=== PATIENT | male | born 2005 | race Caucasian/White ===

== ENCOUNTER 2024-07-07 14:49 | Outpatient (AMB) | payer BC, SELFPAY ==
--- NOTE | 2024-07-07 15:21 | A.OFFPC_ITS ---
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 CARE HPI Details New Patient? ?? Prior PCP:[facility] in [place]. Last office visit/CPE:? 1 yr ago Acute issue(s):? Est Care ?? PMHx:? Childhood Asthma Now resolved. SurgHx:? [place] Teeth FHx:?Mom: HTN, Breast CA. Dad: HTN. GF: Heart Disease. Uncle: Prostate CA. 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 ?Nonsmoker. etOH: None. No Drugs HPI Comments History of Present Illness0 Details Documentation assistance for Sinan Sharif MD, was provided by Justice Martino,? Chemistry Physics Teacher on 07/07/2024 at 3:46 PM EST. I, Dr. Sharif, have read, observed, and verified documentation. [facility] Social History (Updated 07/07/24 @ 15:23 by Sonali Moreira [facility]) Housing: Apartment Patient Tobacco Use Status: Never used Tobacco e-Cigarette/Vaping Use: Never Used Second Hand Smoke Exposure: No Use of substances other than those prescribed or required for medical reasons: No service: No Current occupational status: employed and student Current occupation: [employer] Current occupational exposures/hazards: No Cognitive needs: No Hearing needs: No Vision needs: No Questionnaire PHQ-9 Over the last 2 weeks, how often have you been bothered by any of the following problems? 1. Little interest or pleasure in doing things: not at all 2. Feeling down, depressed, or hopeless: not at all 3. Trouble falling or staying asleep, or sleeping too much: not at all 4. Feeling tired or having little energy: not at all 5. Poor appetite or overeating: not at all 6. Feeling bad about yourself - or that you are a failure or have let yourself or your family down: not at all 7. Trouble concentrating on things, such as reading the newspaper or watching television: not at all 8. Moving or speaking so slowly that other people could have noticed. Or the opposite - being so fidgety or restless that you have been moving around a lot more than usual: not at all 9. Thoughts that you would be better off or of hurting yourself in some way: not at all Total score: 0 Depression Screening Interpretation: Negative Depression Screening Done: Yes 94475 - PHQ-9 Billing: Yes Source: Developed by Drs. Doroteo Willard, Ness Bunch, Cecil Wiggins and colleagues, with an educational myranda from [employer]. Thrive Questionnaire Date Thrive assessed: 07/07/24 I am a: Patient What is your living situation today?: I have a steady place to live Within the past 12 months, did the food you bought not last and you didn't have the money to get more?: Never true Within the past 12 months, did you worry whether your food would run out before you got money to buy more?: Never true Do you have trouble paying for medicines?: No Do you have trouble getting transportation to medical appointments?: No Do you have trouble paying your heating and electricity bill?: No Do you have trouble taking care of your child, family member or friend?: No Do you have trouble with day-to-day activities such as bathing, preparing meals, shopping, managing finances, etc.?: No Are you currently unemployed and looking for a job?: No Are you interested in more education?: No Please select the resources that you would like help with: None Currently or been in a relationship where the following occur: No concerns reported THRIVE Score: 0 AUDIT C Alcohol Use Questionnaire (AUDIT-C) 1. How often do you have a drink containing alcohol?: Never 3. How often do you have six or more drinks on one occasion?: Never Total Score: 0 LISA-7 AMB Questionnaire LISA-7 Date LISA - 7 assessed: 07/07/24 Feeling nervous, anxious, or on edge: 0 = Not at all Not being able to stop or control worryin = Not at all Worrying too much about different things: 0 = Not at all Trouble relaxin = Not at all Being so restless that it is hard to sit still: 0 = Not at all Becoming easily annoyed or irritable: 0 = Not at all Feeling afraid as if something awful might happen: 0 = Not at all Total LISA-7 score (0-4 normal; 5-9 mild; 10-14 moderate; 15-21 severe): 0 Source: Developed by Drs. Doroteo Willard, Ness Bunch, Cecil Wiggins and colleagues, with an educational myranda from [employer]. LISA-7 Assessment Billing LISA-7 Assessment Tool: LISA-7 Assessment 51822 Review of Systems Const Denies chills, Denies fatigue, Denies fever(s), Denies headache(s) and Denies weakness Eyes Denies change in vision ENT Denies dizziness, Denies headache(s), Denies hearing loss, Denies nasal congestion, Denies sinus pain, Denies sinus pressure and Denies sore throat Card Denies chest pain, Denies lightheadedness, Denies dyspnea and Denies other (palpitations) Resp Denies cough, Denies dyspnea and Denies wheezing GI Denies abdominal pain, Denies melena, Denies hematochezia, Denies change in bowel habits, Denies dyspepsia and Denies nausea Denies hematuria and Denies dysuria Musc Denies abnormal gait, Denies myalgias, Denies arthralgias, Denies numbness and Denies tingling Skin/Breast Denies rash, Denies unusual bruising and Denies wounds Neuro Denies abnormal gait, Denies dizziness, Denies headache(s), Denies memory loss, Denies numbness, Denies Sensory deficit (Neuro), Denies tingling and Denies weakness Psych Denies anxiety, Denies depression and Denies memory loss Endo Denies cold intolerance, Denies fatigue, Denies heat intolerance, Denies polydipsia and Denies polyuria Yasmany/Lymph Denies easy bleeding and Denies easy bruising Aller/Immun Denies wheezing Physical exam (Primary Care) Vital Signs: Last Vital Signs Temp 98.4 F 07/07/24 15:24 Pulse 74 07/07/24 15:24 Resp 12 07/07/24 15:24 BP 123/62 07/07/24 15:24 Pulse Ox 97 07/07/24 15:24 Oxygen Delivery Method Room Air 07/07/24 15:24 BMI result Body Mass Index 22.0 Tobacco/Smoking Status: Tobacco use Status Tobacco use date assessed 07/07/24 07/07/24 15:27 Patient Tobacco Use Status Never used Tobacco 07/07/24 15:27 e-Cigarette/Vaping Use Never Used 07/07/24 15:27 PHQ-9: PHQ-9 Score PHQ-9: Total score 0 07/07/24 15:36 Depression Screening Interpretation: Negative Thrive Assessment: Date of Thrive Assessment Date Thrive assessed 07/07/24 07/07/24 15:27 Currently or been in a relationship where the following occur: No concerns reported Const General: no acute distress, well developed, alert and awake Nutritional Appearance: well nourished Orientation/consciousness: patient oriented x3 HENMT Head: Yes normocephalic and Yes atraumatic Ears: hearing grossly normal bilaterally and TM's normal bilaterally General nose exam: Normal external nose present and Normal nares present Mouth: Normal oral and palatal mucosa present and moist mucous membranes Teeth and gingiva: dentition normal Throat: Yes posterior oropharynx normal Eyes General: appearance normal, both eyes and all related structures Pupils: Equal, round and reactive pupils present and Pupil accommodation reflex normal EOM: EOMs intact bilaterally Neck Neck: Yes normal visual inspection, Yes no lymphadenopathy and Yes trachea midline Thyroid: Thyroid normal Carotids: no bruits Lymphatic: no lymphadenopathy noted Chest Chest palpation & inspection: normal inspection of the chest Resp Effort & Inspection: normal respiratory effort Auscultation: clear to auscultation bilaterally Cardio Rate: regular rate Rhythm: regular rhythm Heart sounds: S1 normal heart sound present, S2 normal heart sound present, no gallops, no murmurs and no rubs Bruits: no abdominal aortic bruits and no carotid bruits GI Palpation (GI): No Abdominal aortic bruit present, Soft to palpation, nontender, No hepatosplenomegaly present and No Rebound tenderness present Auscultation: normal bowel sounds General: Yes no CVA tenderness Back/Spine/Pelvis Back: no CVA tenderness Cervical Spine: cervical ROM normal and No Cervical spine tenderness Thoracic/Lumbar Spine: thoraco-lumbar ROM normal, No pain with thoraco-lumbar ROM, No thoracic spinal tenderness and No lumbar spinal tenderness Skin Lesions: no lesions Rashes: no rashes Trauma: no lacerations or abrasions Wounds: no wounds Nails: normal Neuro General: patient oriented x3 Cranial nerves: Yes Equal, round and reactive pupils present Cognition (Neuro): normal cognition Gait exam (Neuro): Normal gait present Motor exam (neuro): 5/5 motor strength present throughout Sensory Exam: No Sensory deficit (Neuro) Deep tendon reflexes (DTR's): Right patellar reflex intensity grade: 2+ and Left patellar reflex intensity grade: 2+ Extrem General: Yes normal to inspection and No edema Psych Appearance: grossly normal Affect: normal affect Attitude: cooperative Thought process: Normal thought process present Coding Level of Care Code New Pt Level 3 (59637) New Pt Prev Care 18-39yr(85489 Diagnoses Adult general medical exam Z00.00 Additional Codes LISA-7 Assessment Billing - LISA-7 Assessment Tool: LISA-7 Assessment 46197 ([id number]) Assessment & Plan Assessment & Plan (1) Adult general medical exam: Code(s): Z00.00 - Encounter for general adult medical examination without abnormal findings Category: Medical Plan: 19-year-old?male?presents?as?new?patient?for?complete?physical?exam Encouraged?ongoing?healthy?diet?with?active?lifestyle?and?plenty?of?exercise Plan Check?lab Orders: Orders Microalbumin, Random (w Creat) Today I10 - Essential (primary) hypertension TSH reflex Free T4 Today Z00.00 - Encounter for general adult medical examination without abnormal findings UA and rflx microscopic Today Z00.00 - Encounter for general adult medical examination without abnormal findings CT NG by PCR Today Z11.3 - Encounter for screening for infections with a predominantly sexual mode of transmission Comprehensive [place]. Panel Fast Today Z00.00 - Encounter for general adult medical examination without abnormal findings Lipid Panel Today Z00.00 - Encounter for general adult medical examination without abnormal findings HIV Ab/Ag Today Z11.3 - Encounter for screening for infections with a predominantly sexual mode of transmission Hepatitis B,C Profile Today Z11.3 - Encounter for screening for infections with a predominantly sexual mode of transmission Syphilis Screen Today Z11.3 - Encounter for screening for infections with a predominantly sexual mode of transmission
[2024-07-07 15:24] VITALS: BP 123/62; PULSE 74; RESP 12; TEMP 36.9; O2SAT 97; BMI 22.0
== END 2024-07-07 15:55 | disposition home or self-care (01) ==
PROVIDERS: PCP Family Medicine; Visit Provider Family Medicine
DX: Z00.00 Encounter for general adult medical examination without abnormal findings (principal)

== ENCOUNTER → 2024-07-07 14:49 | Outpatient (BNVA) | payer BC, SELFPAY | PROVIDERS: PCP Family Medicine; Visit Provider Family Medicine | DX: Z00.00 Encounter for general adult medical examination without abnormal findings (principal) | CPT/HCPCS: 96127 ==

== ENCOUNTER 2024-09-01 09:12 | Outpatient (REF) | payer BC, SELFPAY ==
[2024-09-01 12:10] LABS: Appearance Urine Clear; Color Urine Yellow; Glucose Urine UA Negative (Negative); Leukocyte Esterase Urine Negative (Negative); Nitrite Urine Negative (Negative); Specific Gravity - Urine >= 1.030 (1.005-1.025); Urine Blood Negative (Negative); Urine Ketones Negative (Negative); Urine Protein Negative (Neg-Trace)
[2024-09-01 12:46] LABS: Alanine Aminotransferase 23 U/L (0-40); Albumin Level 4.6 g/dL (3.5-5.0); Alkaline Phosphatase 65 U/L (39-117); Anion Gap 11 (12-20); Aspartate Amino Transferase 27 U/L (5-37); Bilirubin Total 0.9 mg/dL (0.0-1.0); Blood Urea Nitrogen 19 mg/dL (9-16); Calcium 9.1 mg/dL (8.4-10.2); Carbon Dioxide 29 mmol/L (22-29); Chloride 103 mmol/L (96-108); Cholesterol 143 mg/dL (<200); Estimated Glomerular Filt Rate > 60; Glucose Fasting 96 mg/dL (60-99); HDL Cholesterol 41 mg/dL (>40); LDL Cholesterol Calculated 83 mg/dL (<100); Potassium 4.1 mmol/L (3.3-5.1); Sodium 139 mmol/L (135-145); Total Protein 7.6 g/dL (6.5-8.0); Triglycerides 95 mg/dL (<150)
[2024-09-01 12:56] LABS: Syphilis Screen Nonreactive (Nonreactive)
[2024-09-01 13:02] LABS: HBS Num1 0.47 mIU/mL (0-7.99); HBc Num1 0.18 S/CO (0.00-0.79); HBsAGNum1 0.34 S/CO (0.00-0.99); HIV AB/AG Nonreactive (Nonreactive); HIV Num 1 0.08 S/CO (0.00-0.99); Hepatitis B Core Antibody Nonreactive (Nonreactive); Hepatitis B Surface Antigen Negative (Negative); ~HepC Num1 0.18 S/CO (0.00-0.79); ~Hepatitis B Surface Antibody NONREACTIVE (Nonreactive); ~Hepatitis C Antibody Nonreactive (Nonreactive)
[2024-09-01 13:04] LABS: TSH reflex Free T4 1.81 uIU/mL (0.32-4.0)
[2024-09-01 13:11] LABS: Creatinine Urine 192.82 mg/dL; Microalbum/Creatinine Ratio Ur 5.1 ug/mg cr (<30)
[2024-09-01 13:39] LABS: CT PCR NOT DETECTED (Not Detect.); NG PCR NOT DETECTED (Not Detect.)
== END 2024-09-01 09:13 | disposition home or self-care (01) ==
LOC: HO.WFDLDS 09:12
PROVIDERS: Visit Provider Family Medicine
DX: Z00.00 Encounter for general adult medical examination without abnormal findings (principal); Z11.3 Encounter for screening for infections with a predominantly sexual mode of transmission; I10 Essential (primary) hypertension
CPT/HCPCS: 80053; 80061; 81003; 82043; 82570; 84443; 86704; 86706; 86780; 86803; 87340; 87389; 87491; 87591

== ENCOUNTER 2024-09-29 16:37 | Outpatient (AMB) | payer BC, SELFPAY ==
--- NOTE | 2024-09-29 16:35 | A.OFFPC_ITS ---
Intake Visit Reasons: f/u CPE labs via telemedicine Intake Note: patient here for telehealth for lab review Extension Course Coordinator Required: No Allergies No Known Allergies Allergy (Verified 09/29/24 16:35) Medication List - Last Reconciled 09/29/24 by Sinan Sharif MD No Known Home Meds Tobacco use date assessed: 09/29/24 Dental Screening Dental Screen Date: 09/29/24 Did you have a dental visit in the last 12 months?: Yes Did you have a dental problem in the last 6 months where you did not have access to dental care?: No Was dental information given to patient?: Patient has dentist HPI f/u CPE labs via telemedicine HPI Details 19 y/o male presents to f/u CPE-labs via telemedicine. Labs drawn 09/01/24. Reviewed labs with pt. Triglycerides 95. TC 143. LDL 83. HDL 41. STD panel negative. PFSH Social History (Updated 07/07/24 @ 15:23 by Sonali Moreira [facility]) Housing: Apartment Patient Tobacco Use Status: Never used Tobacco e-Cigarette/Vaping Use: Never Used Second Hand Smoke Exposure: No service: No Current occupational status: employed and student Current occupation: [employer] Current occupational exposures/hazards: No Cognitive needs: No Hearing needs: No Vision needs: No Questionnaire Thrive Questionnaire Date Thrive assessed: 07/07/24 I am a: Patient What is your living situation today?: I have a steady place to live Within the past 12 months, did the food you bought not last and you didn't have the money to get more?: Never true Within the past 12 months, did you worry whether your food would run out before you got money to buy more?: Never true Do you have trouble paying for medicines?: No Do you have trouble getting transportation to medical appointments?: No Do you have trouble paying your heating and electricity bill?: No Do you have trouble taking care of your child, family member or friend?: No Do you have trouble with day-to-day activities such as bathing, preparing meals, shopping, managing finances, etc.?: No Are you currently unemployed and looking for a job?: No Are you interested in more education?: No Please select the resources that you would like help with: None Currently or been in a relationship where the following occur: No concerns reported THRIVE Score: 0 AUDIT C Alcohol Use Questionnaire (AUDIT-C) 3. How often do you have six or more drinks on one occasion?: Never Total Score: 0 LISA-7 AMB Questionnaire LISA-7 Date LISA - 7 assessed: 07/07/24 Source: Developed by Drs. Doroteo Willard, Ness Bunch, Cecil Wiggins and colleagues, with an educational myranda from [employer] Review of Systems Const Denies chills, Denies fatigue, Denies fever(s), Denies headache(s) and Denies weakness ENT Denies dizziness and Denies headache(s) Card Denies dyspnea Resp Denies cough, Denies dyspnea, Denies wheezing and Denies other (shortness of breath) Musc Denies numbness and Denies tingling Neuro Denies dizziness, Denies headache(s), Denies numbness, Denies tingling and Denies weakness Psych Denies anxiety and Denies depression Endo Denies fatigue Aller/Immun Denies wheezing Physical exam (Primary Care) Tobacco/Smoking Status: Tobacco use Status Tobacco use date assessed 09/29/24 09/29/24 16:36 Patient Tobacco Use Status Never used Tobacco 09/29/24 16:36 e-Cigarette/Vaping Use Never Used 09/29/24 16:36 Thrive Assessment: Date of Thrive Assessment Date Thrive assessed 07/07/24 09/29/24 16:36 Currently or been in a relationship where the following occur: No concerns reported Telehealth Telehealth Telehealth Platform: Telephone Location of provider rendering services: practice address Location of patient: address on file Patient Identification confirmed using: Name, : Yes Telehealth method: voice only Patient verbally consented to treatment: Yes Patient verbally consented to billing insurance company: Yes Patient informed of any privacy concerns related to visit: Yes Minutes spent on Phone/Video with Pt.: 5 Coding Level of Care Code Tele Est Pt Level 2 (95548) Diagnoses Screening for STD (sexually transmitted disease) Z11.3 Assessment & Plan Assessment & Plan (1) Screening for STD (sexually transmitted disease): Code(s): Z11.3 - Encounter for screening for infections with a predominantly sexual mode of transmission Category: Medical Plan: Screening?for?STD?STIs?all?negative Plan Reviewed?patient's?oth er?lab?work?and?all?within?normal?limits?except?urine?is?massively?concentrated? and?he?appears?to?be?mildly?dehydrated. Encouraged?increased?hydration. Orders: Orders TSH reflex Free T4 Today Z00.00 - Encounter for general adult medical examination without abnormal findings Comprehensive [place]. Panel Fast Today Z00.00 - Encounter for general adult medical examination without abnormal findings Lipid Panel Today Z00.00 - Encounter for general adult medical examination without abnormal findings Microalbumin, Random (w Creat) Today I10 - Essential (primary) hypertension UA and rflx microscopic Today Z00.00 - Encounter for general adult medical examination without abnormal findings
== END 2024-09-29 17:05 | disposition home or self-care (01) ==
LOC: HO.HMCFM 16:37
PROVIDERS: PCP Family Medicine; Visit Provider Family Medicine
DX: Z11.3 Encounter for screening for infections with a predominantly sexual mode of transmission (principal)

== ENCOUNTER → 2024-09-29 16:37 | Outpatient (BNVA) | payer BC, SELFPAY | PROVIDERS: PCP Family Medicine; Visit Provider Family Medicine ==

== ENCOUNTER 2025-07-10 14:52 | Outpatient (AMB) | payer BC, SELFPAY ==
--- NOTE | 2025-07-10 14:57 | A.OFFPC_ITS ---
Vital Signs 07/10/25 15:00 Height 5 ft 8 in Weight 147 lb BMI 22.3 BP 124/64 Blood Pressure Location Rt brachial Position Sitting Respiration 14 Pulse 86 Pulse Source Pulse Oximeter Temp 98.6 F Temp Source Oral Pulse Oximetry (%) 99 Oxygen Delivery Method Room Air Intake Visit Reasons: Physical Dr. Bee Pt. - see comments Intake Note: Physical Allergies influenza virus vaccine, specific Allergy (Mild, Verified 07/10/25 15:08) edema Medication List - Last Reviewed 07/10/25 by Meghan Cr CMA albuterol sulfate 90 mcg/actuation (Ventolin HFA) 2 puffs inhalation Q6H PRN Tobacco use date assessed: 07/10/25 Dental Screening Dental Screen Date: 07/10/25 Did you have a dental visit in the last 12 months?: Yes Did you have a dental problem in the last 6 months where you did not have access to dental care?: No Was dental information given to patient?: Patient has dentist HPI HPI Comments History of Present Illness Details History of Present Illness The patient is a 20-year-old male presenting for an annual physical examination and evaluation of warts on his feet. Allergic reaction to influenza vaccine: - Previous post-vaccination swelling. - Influenza vaccine added to allergy lis t. Viral warts on feet: - Presence of multiple warts under the t oe R foot - Failed OTC treatment attempts. Asthma (well controlled, situational exacerbation): - Controlled with as-needed albuterol. - Symptoms arise during illness or with dry air. Past Surgical History - No surgical history reported. Family History - No changes reported since last year; f amily members are alive. Social History - Attends [employer]. - Major: Sports Medicine; pursuing inter est in physical therapy. - Works at [employer] and applying to graduate school. - Lives off-campus in an apartment. - Denies smoking, vaping, or drug use. - Engages in physical activity due to sp orts degree; details on personal sports participation not specified. - Wears seatbelt; eats unrestricted diet . Health Maintenance - Received a tetanus shot within the las t 10 years. - No recent surgeries or medical history changes reported. - Current with vaccinations except for i nfluenza, due to past allergic reaction. - Last comprehensive lab work in [facility] was normal, with no repeat needed at this visit. - Depression and anxiety screenings apolinar thomson. [facility] Social History (Updated 07/10/25 @ 15:04 by Meghan Cr CMA) Housing: Apartment Alcohol intake: current Patient Tobacco Use Status: Never used Tobacco e-Cigarette/Vaping Use: Never Used Second Hand Smoke Exposure: No service: No Current occupational status: employed and student Current occupation: [employer] Current occupational exposures/hazards: No Cognitive needs: No Hearing needs: No Vision needs: No Questionnaire PHQ-9 Over the last 2 weeks, how often have you been bothered by any of the following problems? 1. Little interest or pleasure in doing things: not at all 2. Feeling down, depressed, or hopeless: not at all 3. Trouble falling or staying asleep, or sleeping too much: not at all 4. Feeling tired or having little energy: not at all 5. Poor appetite or overeating: several days 6. Feeling bad about yourself - or that you are a failure or have let yourself or your family down: not at all 7. Trouble concentrating on things, such as reading the newspaper or watching television: not at all 8. Moving or speaking so slowly that other people could have noticed. Or the opposite - being so fidgety or restless that you have been moving around a lot m ore than usual: not at all 9. Thoughts that you would be better off or of hurting yourself in some way: not at all Total score: 1 Depression Screening Interpretation: Negative Depression Screening Done: Yes 62365 - PHQ-9 Billing: Yes Source: Developed by Drs. Doroteo Willard, Ness Bunch, Cecil Wiggins and colleagues, with an educational myranda from [employer]. Thrive Questionnaire Date Thrive assessed: 07/10/25 I am a: Patient What is your living situation today?: I have a steady place to live Within the past 12 months, did the food you bought not last and you didn't have the money to get more?: I choose not to answer this question Within the past 12 months, did you worry whether your food would run out before you got money to buy more?: Never true Do you have trouble paying for medicines?: No Do you have trouble getting transportation to medical appointments?: No Do you have trouble paying your heating and electricity bill?: No Do you have trouble taking care of your child, family member or friend?: No Do you have trouble with day-to-day activities such as bathing, preparing meals, shopping, managing finances, etc.?: No Are you currently unemployed and looking for a job?: No Are you interested in more education?: No Please select the resources that you would like help with: None Currently or been in a relationship where the following occur: No concerns reported THRIVE Score: 0 AUDIT C Alcohol Use Questionnaire (AUDIT-C) 1. How often do you have a drink containing alcohol?: 2-4 times a month 2. How many drinks containing alcohol do you have on a typical day when you are drinking?: 1 or 2 3. How often do you have six or more drinks on one occasion?: Never Total Score: 2 Score Reviewed/Action Taken: Yes LISA-7 AMB Questionnaire LIAS-7 Date LISA - 7 assessed: 07/10/25 Feeling nervous, anxious, or on edge: 0 = Not at all Not being able to stop or control worryin = Not at all Worrying too much about different things: 0 = Not at all Trouble relaxin = Not at all Being so restless that it is hard to sit still: 0 = Not at all Becoming easily annoyed or irritable: 0 = Not at all Feeling afraid as if something awful might happen: 0 = Not at all Total LISA-7 score (0-4 normal; 5-9 mild; 10-14 moderate; 15-21 severe): 0 Source: Developed by Drs. Doroteo Willard, Ness Bunch, Cecil Wiggins and colleagues, with an educational myranda from [employer]. LISA-7 Assessment Billing LISA-7 Assessment Tool: LISA-7 Assessment 93328 ACT Questionnaire In the past 4 weeks, how much of the time did your asthma keep you from getting as much done at work, school or at home?: None of the time During the past 4 weeks, how often have you had shortness of breath?: Not at all During the past 4 weeks, how often did your asthma symptoms wake you up at night or earlier than usual in the morning?: Not at all During the past 4 weeks, how often have you had to use your rescue inhaler or nebulizer medication?: Not at all How would you rate your asthma control during the past 4 weeks?: Completely controlled ACT Interpretation: Negative Score: 25 Review of Systems Narrative Review of Systems - Respiratory: Denies shortness of breath, chest pain, or wheezing apart from known asthma. - Musculoskeletal: Denies concussions or joint problems. - Skin: Reports warts on foot. - Neurological: Denies concussions. - Other systems: Denied reported changes or symptoms. Physical exam (Primary Care) Vital Signs: Last Vital Signs Temp 98.6 F 07/10/25 15:00 Pulse 86 07/10/25 15:00 Resp 14 07/10/25 15:00 BP 124/64 07/10/25 15:00 Pulse Ox 99 07/10/25 15:00 Oxygen Delivery Method Room Air 07/10/25 15:00 BMI result Body Mass Index 22.3 Tobacco/Smoking Status: Tobacco use Status Tobacco use date assessed 07/10/25 07/10/25 15:05 Patient Tobacco Use Status Never used Tobacco 07/10/25 15:04 e-Cigarette/Vaping Use Never Used 07/10/25 15:04 PHQ-9: PHQ-9 Score PHQ-9: Total score 1 07/10/25 15:08 Depression Screening Interpretation: Negative Thrive Assessment: Date of Thrive Assessment Date Thrive assessed 07/10/25 07/10/25 14:58 Currently or been in a relationship where the following occur: No concerns reported Narrative Physical Exam General: Well developed, well nourished, in no acute distress. Appears stated age. Head: Normocephalic, atraumatic. Eyes: Pupils are equal, round and reactive to light and accommodation. Conjunctivae are clear. Scleras nonicteric bilat. Vision grossly normal. Ears: TMs clear AU, EACS WNL Nose: Patent, without discharge. Neck: No carotid bruit bilat. Supple, no adenopathy or thyromegaly. Breast: Edu on SBE Lungs: Clear to auscultation bilaterally. No rales, rhonchi or wheeze noted. Good air flow in all morelos. Heart: Regular rate and rhythm. No murmurs, click, rubs or gallops are noted. Abdomen: Bowel sounds present in all quadrants. The abdomen is soft, nontender, with no masses or organomegaly noted. No hernias are noted. : Deferred. Reviewed ESE Pulses: Peripheral pulses are equal and palpable bilaterally. Extremities: No clubbing, cyanosis nor edema is noted. Neurologic: Gait and station normal. Cranial Nerves 2-12 intact. Motor strength grossly symmetrical and intact. No sensory loss. Balance normal. Skin: No rashes or lesions noted. Turgor is good. Skin color is good. Hair and nails are without abnormalities. Plantar warts R foot; 1 wart L foot Psych: Normal eye contact, affect and mood appropriate, and normal interactions. Patient is alert and appropriate to context. Depression and anxiety screenings negative. Results - Labs: Last comprehensive lab work from August was normal. - Tests and Diagnostics: Depression and anxiety screenings were negative. Coding Level of Care Code Est Pt Prev Care 18-39y(47811) Diagnoses Adult general medical exam Z00.00 Plantar wart of both feet B07.0 Additional Codes Asthma Control Questionnaire - ACT Interpretation: Negative ([id number]) LISA-7 Assessment Billing - LISA-7 Assessment Tool: LISA-7 Assessment 26567 ([id number]) PHQ-9 - 82721 - PHQ-9 Billing: Yes ([id number]) Assessment & Plan Assessment & Plan (1) Adult general medical exam: Onset Date: ~07/10/25 Code(s): Z00.00 - Encounter for general adult medical examination without abnormal findings Category: Medical (2) Plantar wart of both feet: Code(s): B07.0 - Plantar wart Category: Medical Plan Discussion Notes During the visit, I reviewed the patient's medical status and addressed concerns about warts on his foot and asthma management. We discussed the history and symptoms of the allergic reaction to the influenza vaccine. I advised the patient about refraining from receiving further influenza vaccinations due to the previous allergic reaction. Further, we reviewed treatment options for warts, including referral to podiatry for potential removal through shaving or freezing of the warts. The patient was receptive to trying duct tape as an interim measure. Lastly, we discussed the use of albuterol for situational asthma exacerbations, with a prescription refill provided. A follow-up with podiatry was suggested, and instructions on using the portal for further requests were given. I also mentioned the availability of walk-in services for acute illnesses. Patient was given time to ask questions. All questions were answered to their satisfaction. Assessment and Plan 1. Allergic reaction to influenza vaccine - Significant swelling post-vaccine; avoid future vaccinations. 2. Viral warts on feet - podiatry for removal; duct tape interim measure. 3. Asthma (well controlled, situational exacerbation) - Inhaler refilled; manage situational exacerbations. Patient Instructions - Watch for any changes in symptoms with warts. - Use duct tape on warts as a temporary measure until the podiatry appointment. - Use the albuterol inhaler with sports activities or symptom onset. - Report any worsening of symptoms or new health issues to the office. - RTO 1 year CPE sooner as needed. Consent Patient was informed and verbally consented to the use of an ambient scribe for clinic note documentation during this visit. Orders: Referrals Podiatry Referral B07.0 - Plantar wart Medications: New albuterol sulfate 90 mcg/actuation (Ventolin HFA) 2 puffs inhalation Q6H PRN 6.7 grams 1RF bronchospasm Patient Instructions: Health screenings for men You should visit your health care provider regularly, even if you feel healthy. The purpose of these visits is to: Screen for medical issues Assess your risk for future medical problems Encourage a healthy lifestyle Update vaccinations and other preventive care services Help you get to know your provider in case of an illness Information Even if you feel fine, you should still see your provider for regular checkups. These visits can help you avoid problems in the future. For example, the only way to find out if you have high blood pressure is to have it checked regularly. High blood sugar and high cholesterol level also may not have any symptoms in the early stages. Simple blood tests can check for these conditions. There are specific times when you should see your provider or receive specific health screenings. The [place] Preventive Services Task Force publishes a list of recommended screenings. Below are screening guidelines for men ages 40 to 64. BLOOD PRESSURE SCREENING Have your blood pressure checked at least once every year. Watch for blood pre ssure screenings in your area. Ask your provider if you can stop in to have your blood pressure checked. Ask your provider if you need your blood pressure checked more often if: You have diabetes, heart disease, kidney problems, or are overweight or have certain other health conditions You have a first-degree relative with high blood pressure You are Black Your blood pressure top number is from 120 to 129 mm Hg, or the bottom number is from 70 to 79 mm Hg If the top number is 130 mm Hg or greater or the bottom number is 80 mm Hg or greater, this is considered stage 1 hypertension. Schedule an appointment with your provider to learn how you can lower your blood pressure. Effects of age on blood pressure CHOLESTEROL SCREENING Cholesterol screening should begin at age 35 for men with no known risk factors for coronary heart disease. Repeat cholesterol screening should take place: Every 5 years for men with normal cholesterol levels More often if changes occur in lifestyle (including weight gain and diet) More often if you have diabetes, heart disease, kidney problems, or certain other conditions COLORECTAL CANCER SCREENING If you are under age 45, talk to your provider about getting screened. You may need to be screened if you have a strong family history of colon cancer or polyps. Screening may also be considered if you have risk factors such as a history of inflammatory bowel disease or polyps. If you are age 45 to 75, you should be screened for colorectal cancer. There are several screening tests available: A stool-based fecal occult blood (gFOBT) or fecal immunochemical test (FIT) every year A stool sDNA test every 1 to 3 years Flexible sigmoidoscopy every 5 years or every 10 years with stool testing FIT done every year CT colonography (virtual colonoscopy) every 5 years Colonoscopy every 10 years You may need a colonoscopy more often if you have risk factors for colorectal cancer, such as: Ulcerative colitis A personal or family history of colorectal cancer A history of growths in your colon called adenomatous polyps DENTAL EXAM Go to the dentist once or twice every year for an exam and cleaning. Your dentist will evaluate if you have a need for more frequent visits. DIABETES SCREENING All adults who do not have risk factors for diabetes should be screened starting at age 35 and repeated every 3 years. If you have other risk factors for diabetes, such as a first degree relative with diabetes, overweight or obesity, high blood pressure, prediabetes, or a history of heart disease, you may be tested more often. If you are overweight and have other risk factors, such as high blood pressure and are planning to become , screening is recommended. EYE EXAM Have an eye exam every 2 to 4 years ages 40 to 54 and every 1 to 3 years ages 55 to 64. Your provider may recommend more frequent eye exams if you have vision problems or glaucoma risk. Have an eye exam that includes an examination of your retina (back of your eye) at least every year if you have diabetes. IMMUNIZATIONS Commonly needed vaccines include: Flu shot: get one every year COVID-19 vaccine: ask your provider what is best for you Tetanus-diphtheria and acellular pertussis (Tdap) vaccine: have as one of your tetanus-diphtheria vaccines if you did not receive it as an adolescent Tetanus-diphtheria: have a booster (or Tdap) every 10 years Varicella vaccine: receive 2 doses if you never had chickenpox or the varicella vaccine and were born in 1980 or after Hepatitis B vaccine: receive 2, 3, or 4 doses, depending on your exact circumstances, if you did not receive these as a child or adolescent, until age 59 Shingles (herpes zoster) vaccine: at or after age 50 Ask your provider if you should receive other immunizations, especially if you have certain medical conditions, such as diabetes or are at increased risk for some diseases such as pneumonia. INFECTIOUS DISEASE SCREENING Screening for hepatitis C: all adults ages 18 to 79 should get a one-time test for hepatitis C. Screening for human immunodeficiency virus (HIV): all people ages 15 to 65 should get a one-time test for HIV. Depending on your lifestyle and medical history, you may need to be screened for infections such as syphilis, chlamydia, and other infections. LUNG CANCER SCREENING You should have an annual screening for lung cancer with low-dose computed tomography (LDCT) if: You are age 50 to 80 years AND You have a 20 pack-year smoking history AND You currently smoke or have quit within the past 15 years OSTEOPOROSIS SCREENING If you are age 50 to 64 and have risk factors for osteoporosis, you should discuss screening with your provider. Risk factors can include long-term steroid use, low body weight, smoking, heavy alcohol use, having a fracture after age 50, or a family history of hip fracture or osteoporosis. Osteoporosis PHYSICAL EXAM All adults should visit their provider from time to time, even if they are healthy. The purpose of these visits is to: Screen for diseases Assess risk of future medical problems Encourage a healthy lifestyle Update vaccinations and other preventive care services Maintain a relationship with a provider in case of an illness Your height, weight, and body mass index (BMI) should be checked at every exam. During your exam, your provider may ask you about: Depression and anxiety Diet and exercise Alcohol and tobacco use Safety, such as use of seat belts and smoke detectors Your medicines and risk for interactions PROSTATE CANCER SCREENING If you're 55 through 69 years old, before having the test, talk to your provider about the pros and cons of having a PSA test. Ask about: Whether screening decreases your chance of dying from prostate cancer. Whether there is any harm from prostate cancer screening, such as side effects from testing or overtreatment of cancer when discovered. Whether you have a higher risk of prostate cancer than others. If you are age 55 or younger, screening is not generally recommended. You should talk with your provider about if you have a higher risk for prostate cancer. Risk factors include: Having a family history of prostate cancer (especially a brother or father) Being If you choose to be tested, the PSA blood test is repeated over time (yearly or less often), though the best frequency is not known. Prostate examinations are no longer routinely done on men with no symptoms. Prostate cancer SKIN EXAM Your provider may check your skin for signs of skin cancer, especially if you're at high risk. People at high risk include those who have had skin cancer before, have close relatives with skin cancer, or have a weakened immune system. TESTICULAR EXAM The [place] Preventive Services Task Force (USPSTF) now recommends against performing testicular self-exams. Doing testicular self-exams has been shown to have little to no benefit.
[2025-07-10 15:00] VITALS: BP 124/64; PULSE 86; RESP 14; TEMP 37; O2SAT 99; BMI 22.3
== END 2025-07-10 15:20 | disposition home or self-care (01) ==
LOC: HO.HMCFM 14:53
PROVIDERS: PCP Family Medicine; Visit Provider Nurse Practitioner Family
DX: Z00.00 Encounter for general adult medical examination without abnormal findings (principal); B07.0 Plantar wart

== ENCOUNTER → 2025-07-10 14:52 | Outpatient (BNVA) | payer BC, SELFPAY | PROVIDERS: PCP Family Medicine; Visit Provider Nurse Practitioner Family | DX: Z00.00 Encounter for general adult medical examination without abnormal findings (principal); B07.0 Plantar wart; J45.909 Unspecified asthma, uncomplicated | CPT/HCPCS: 96127; 96160 ==

== ENCOUNTER 2025-07-29 08:51 | Outpatient (AMB) | payer BC, SELFPAY ==
[2025-07-29 08:55] VITALS: BP 122/64; PULSE 79; TEMP 36.5; O2SAT 98; BMI 23.3
--- NOTE | 2025-07-29 08:55 | AM.OFFWIN_ITS ---
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 Pt denies this ever happening in the past and reports environmental allergies. Patient Tobacco Use Status: Never used Tobacco Allergies influenza virus vaccine, specific Allergy (Mild, Verified 07/29/25 09:00) edema environmental allergies Adverse Reaction (Mild, Verified 07/29/25 09:01) sinusitis Do you need a note to return to daycare/school/sports/work: No HPI HPI Comments History of Present Illness Details Patient is a 20yo M who presents with hives complaint He denies past medical hx aside from environmental allergies He said onset of symptoms 2-3 weeks ago He was sick with URI symptoms, no hives while sick; no covid testing completed at this time Denies any new vaccines recently Pt denies SOB or breathing issues associated with current symptoms 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 Symptoms now onset and worse while outside Has not tried cold shower or swimming to see if that worsens symptoms Alegra OTC helps; has been taking x 1 week everyday and helps subdue the itch post cold exposure No use of Benadryl or similar medicine Worsened when running outside; doesn't occur when walking to class and wearing a jacket He said when the hives come on it is itchy but Sarah helps When he gets they are red and blotchy all over; avoids face. 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 Speaking full sentences. Skin: Warm dry throughout. No rashes to face, neck, arms or back. Eye: EOMI, PERRL HENT: Airway patent. Uvula midline. No pharyngeal erythema or edema. No [employer]RO[employer] WORK[employer]. Bilateral canals clear. TM non-erythematous, non-bulging. No TM perforation or hemotympanum noted. Respiratory: CTA bilaterally. No wheezes, rales or rhonchi Cardiac: RRR. No murmur MSK: Full ROM extremities. Neurology: Alert. No aphasia or facial droop. Gait without abnormality Psych: Good mood and affect Vital Signs: Last Vital Signs Temp 97.7 F 07/29/25 08:55 Pulse 79 07/29/25 08:55 BP 122/64 07/29/25 08:55 Pulse Ox 98 07/29/25 08:55 Oxygen Delivery Method Room Air 07/29/25 08:55 BMI result Body Mass Index 23.3 Assessment & Plan Assessment & Plan (1) Urticaria due to cold: Code(s): L50.2 - Urticaria due to cold and heat Plan: Patient seen and evaluated. Non-toxic appearing and in NAD He has no symptoms currently and lungs are CTA Discussed with pt that he seems to have cold urticaria but this is abnormal diagnosis at his age with no prior symptoms Recommended Alegra daily OTC as he has been takin Will trial short course Prednisone x 4 days (+ food. No alcohol or ibuprofen/NSAIDs) Resident Intern referral given Discussed cover up, wear warm clothes Discussed ER s/s to go immediate for eval with SOB, throat tightness, difficulty swollowing, CP etc. Patient gave verbal understanding and had no additional questions or concerns at time of discharge All questions answered Orders: Referrals Allergy & Immunology Referral L50.2 - Urticaria due to cold and heat Medications: New prednisone 40 mg (2 x 20 mg) PO DAILY 8 tabs 0RF Coding Level of Care Code Est Pt Level 3 (97215) Diagnoses Urticaria due to cold L50.2
== END 2025-07-29 09:26 | disposition home or self-care (01) ==
PROVIDERS: PCP Family Medicine; Visit Provider Physician Assistant
DX: L50.2 Urticaria due to cold and heat (principal)